=== PATIENT | female | born 1970 | race African-American/Black ===

== ENCOUNTER 2023-08-28 20:50 | Emergency (ER) | payer OTHER ==
[~2023-08-28] VITALS: Ht 157.5 cm; Wt 84.8 kg
[2023-08-28] MEDS ORDERED: TYLENOL325 MG PO (22:26)
[2023-08-28] MEDS ORDERED: NAPROSYN500 MG PO (22:26)
[2023-08-28] MEDS ORDERED: PREDNISONE50 MG PO (22:26)
[2023-08-28] MEDS ORDERED: KETOROLAC TROMETHAMINE 30 MG/ML VIAL IM ONE (22:30)
[2023-08-28] MEDS ORDERED: ACETAMINOPHEN 325 MG TAB PO ONE (22:30)
[2023-08-28] MEDS ORDERED: KETOROLAC TROMETHAMINE 30 MG/ML VIAL ONE (22:54)
[2023-08-28] MEDS ORDERED: ACETAMINOPHEN 325 MG TAB ONE (22:54)
[2023-08-28 23:03] VITALS: BP 178/106; PULSE 74; RESP 18; TEMP 98; O2SAT 97
== END 2023-08-28 23:03 | disposition home or self-care (01) ==
LOC: FSED 21:08
DX: M25.662 Stiffness of left knee, not elsewhere classified (principal); M17.12 Unilateral primary osteoarthritis, left knee; X50.1XXA Overexertion from prolonged static or awkward postures, initial encounter; Y92.89 Other specified places as the place of occurrence of the external cause; I10 Essential (primary) hypertension
CPT/HCPCS: 73560; 96372; 99283; J1885